=== PATIENT | female | born 1980 | race American Indian/Alaskan Native ===

== ENCOUNTER 2016-05-09 02:25 | Emergency (ER) | payer MEDICAID ==
[2016-05-09 02:51] VITALS: BP 111/76
[2016-05-09 03:33] LABS: Basophils % (Auto) 0.3 % (0.0-1.8); Eosinophils % (Auto) 2.7 % (0.0-4.3); Hematocrit 39.8 % (30.3-42.9); Hemoglobin 13.1 gm/dl (10.1-14.3); Mean Corpuscular HGB Conc 33 % (30-34); Mean Corpuscular Hemoglobin 29 pg (28-32); Mean Corpuscular Volume 89 fl (79-97); Platelet Count 278 K/mm3 (140-440); Red Blood Count 4.49 M/mm3 (3.65-5.03); Red Cell Distribution Width 14.2 % (13.2-15.2); White Blood Count 10.7 K/mm3 (4.5-11.0)
[2016-05-09 04:28] LABS: Sodium 134 mmol/L (137-145)
[2016-05-09 04:29] LABS: Anion Gap 15 mmol/L; Blood Urea Nitrogen 9 mg/dL (7-17); Calcium 8.5 mg/dL (8.4-10.2); Carbon Dioxide 24 mmol/L (22-30); Glucose 97 mg/dL (65-100); Potassium 4.1 mmol/L (3.6-5.0)
--- NOTE | 2016-05-09 20:55 | ED Elopement Review ---
ED Pt Elopement review - Results review Lab results: Laboratory Tests 05/09/16 05/09/16 05/09/16 03:12 03:12 03:12 WBC 10.7 RBC 4.49 Hgb 13.1 Hct 39.8 MCV 89 MCH 29 MCHC 33 RDW 14.2 Plt Count 278 Lymph % (Auto) 22.7 Churchill % (Auto) 6.6 Eos % (Auto) 2.7 Baso % (Auto) 0.3 Lymph # 2.4 Churchill # 0.7 Eos # 0.3 Baso # 0.0 Seg Neutrophils % 67.7 Seg Neutrophils # 7.2 Sodium 134 L Potassium 4.1 Chloride 99.0 Carbon Dioxide 24 Anion Gap 15 BUN 9 Creatinine 0.6 L Estimated GFR > 60 BUN/Creatinine Ratio 15.00 Glucose 97 Calcium 8.5 Troponin T < 0.010 HCG, Qual Negative - Call Back decision Pt Call Back Decision: No action required
== END 2016-05-09 03:15 | disposition left against medical advice (07) ==
LOC: ED 02:25
DX: R10.9 Unspecified abdominal pain (principal); Z53.21 Procedure and treatment not carried out due to patient leaving prior to being seen by health care provider
CPT/HCPCS: 36415; 80048; 84484; 84703; 85025; 93005; 93010

== ENCOUNTER 2016-10-31 20:56 | Emergency (ER) | payer SELFPAY | END 2016-10-31 21:57 | disposition left against medical advice (07) | LOC: ED 20:56 | DX: Z53.21 Procedure and treatment not carried out due to patient leaving prior to being seen by health care provider (principal) ==

== ENCOUNTER 2018-05-22 11:28 | Emergency (ER) | payer MEDICAID ==
[2018-05-22] MEDS ORDERED: SOLU-Medrol IV ONE (11:31)
[2018-05-22] MEDS ORDERED: PROVENTIL IH ONE ×2 (11:31→13:59)
[2018-05-22] MEDS ORDERED: ATROVENT IH ONE ×2 (11:31→13:59)
[2018-05-22] MEDS ORDERED: ADRENALINE P/F SUB-Q ONE ×3 (11:32→13:59)
[2018-05-22] MEDS ORDERED: NACL 0.9% 500 ML 500 ML IV ONE (11:33)
--- NOTE | 2018-05-22 11:33 | Emergency Department Report ---
ED Asthma HPI - General Chief Complaint: Adult Asthma Stated Complaint: ERUM Time Seen by Provider: 05/22/18 11:30 Source: patient, family, EMS (ems notes not available at time of chart dictation), RN notes reviewed, old records reviewed Mode of arrival: Stretcher Limitations: Physical Limitation - History of Present Illness Initial Comments: This is a 38-year-old female. The patient is not known to this provider previously. She reports that she is not . Denies DVT, pulmonary embolus risk factors. Reports a past history of asthma. Diagnosis a child. At least one lead time hospitalization/intubation. Presents to the ER today with a complaint of asthma exacerbation, wheezing and cough. Reports typical triggers include cold weather, change of seasons. Was given albuterol by EMS. Upon initial arrival to the emergency room, patient is wheezing, tachypnea, and in respiratory distress. She is given multiple rounds of epinephrine subcutaneously, fluids, albuterol, Atrovent, steroids and magnesium. These dramatically improved her symptoms. She reports chest wall pain which started with her asthma attack, which does not radiate to the back, arms or neck, and is not associated with vomiting or diaphoresis. She reports she typically gets chest wall pain with her asthma attacks. MD Complaint: "asthma attack", shortness of breath, wheezing -: Gradual Asthma History: childhood onset Severity: severe Context: other Associated Symptoms: dry cough Treatments Prior to Arrival: inhaled bronchodilator (as per verbal report from nursing staff, EMS gave 5 mg of albuterol) - Related Data Home Medications Medication Instructions Recorded Confirmed Last Taken Budesonide [Pulmicort Respules] 1 neb INHALATION BID 01/15/13 10/01/15 06/06/13 02:00 Prednisone [predniSONE 10 mg 10 mg PO QDAY 01/15/13 10/01/15 06/06/13 02:00 (6-Day Pack, 21 Tabs)] Previous Rx's Medication Instructions Recorded Last Taken Type ALBUTEROL Inhaler (OR & NICU) 1 puff IH Q4-6H #1 inha 04/27/13 06/06/13 02:00 Rx [ProAir HFA Inhaler] ALBUTEROL NEB's [Proventil 0.083% 1 inh INHALATION Q4H PRN #60 ml 04/27/13 06/06/13 02:00 Rx NEBS] oxyCODONE /ACETAMINOPHEN [Percocet 1 tab PO Q6HR PRN #20 tablet 06/07/13 Unknown Rx 5/325 mg] Albuterol Sulfate [Proair 90 mcg IH Q4HR PRN #2 aer.pow.ba 05/22/18 Unknown Rx Respiclick] Budesonide [Pulmicort Flexhaler] 2 puff IH BID #1 aer.pow.ba 05/22/18 Unknown Rx EPINEPHrine [Epipen 2-Milad] 0.3 mg IM DAILY PRN #2 ml 05/22/18 Unknown Rx Ipratropium [Atrovent NEB] 0.5 mg IH Q4HR #2 ml 05/22/18 Unknown Rx predniSONE [Deltasone] 40 mg PO QDAY #8 tab 05/22/18 Unknown Rx Allergies Allergy/AdvReac Type Severity Reaction Status Date / Time iodine Allergy Swelling Verified 01/15/13 10:05 naproxen Allergy Swelling Verified 01/15/13 10:05 seafood Allergy Shortness Uncoded 06/06/13 23:14 of Breath ED Review of Systems ROS: Stated complaint: ERUM Other details as noted in HPI Constitutional: malaise. denies: fever Eyes: denies: eye discharge ENT: congestion Respiratory: wheezing Cardiovascular: dyspnea on exertion Gastrointestinal: denies: vomiting Genitourinary: denies: dysuria Musculoskeletal: arthralgia Skin: denies: lesions Neurological: weakness Psychiatric: anxiety ED Past Medical Hx - Past Medical History Hx Hypertension: No Hx Congestive Heart Failure: No Hx Diabetes: No Hx Deep Vein Thrombosis: No Hx Renal Disease: No Hx Sickle Cell Disease: No Hx Seizures: No Hx Asthma: Yes (1.7 albuterol PRN) Hx COPD: No Hx HIV: No - Social History Smoking Status: Never Smoker Substance Use Type: None - Medications Home Medications: Home Medications Medication Instructions Recorded Confirmed Last Taken Type Budesonide [Pulmicort Respules] 1 neb INHALATION BID 01/15/13 10/01/15 06/06/13 02:00 History Prednisone [predniSONE 10 mg 10 mg PO QDAY 01/15/13 10/01/15 06/06/13 02:00 History (6-Day Pack, 21 Tabs)] ALBUTEROL Inhaler (OR & NICU) 1 puff IH Q4-6H #1 inha 04/27/13 10/01/15 06/06/13 02:00 Rx [ProAir HFA Inhaler] ALBUTEROL NEB's [Proventil 0.083% 1 inh INHALATION Q4H PRN #60 ml 04/27/13 10/01/15 06/06/13 02:00 Rx NEBS] oxyCODONE /ACETAMINOPHEN [Percocet 1 tab PO Q6HR PRN #20 tablet 06/07/13 10/01/15 Unknown Rx 5/325 mg] Albuterol Sulfate [Proair 90 mcg IH Q4HR PRN #2 aer.pow.ba 05/22/18 Unknown Rx Respiclick] Budesonide [Pulmicort Flexhaler] 2 puff IH BID #1 aer.pow.ba 05/22/18 Unknown Rx EPINEPHrine [Epipen 2-Milad] 0.3 mg IM DAILY PRN #2 ml 05/22/18 Unknown Rx Ipratropium [Atrovent NEB] 0.5 mg IH Q4HR #2 ml 05/22/18 Unknown Rx predniSONE [Deltasone] 40 mg PO QDAY #8 tab 05/22/18 Unknown Rx ED Physical Exam - General General appearance: alert, anxious, in distress, obese - Head Head exam: Present: atraumatic, normocephalic - Eye Eye exam: Present: normal appearance, EOMI. Absent: nystagmus - ENT ENT exam: Present: normal exam, normal orophraynx, mucous membranes moist, normal external ear exam - Neck Neck exam: Present: normal inspection, full ROM. Absent: tenderness, meningismus - Respiratory Respiratory exam: Present: respiratory distress, wheezes, rhonchi, chest wall tenderness - Cardiovascular Cardiovascular Exam: Present: normal rhythm, tachycardia, normal heart sounds. Absent: systolic murmur, diastolic murmur, rubs, gallop - GI/Abdominal GI/Abdominal exam: Present: soft. Absent: distended, tenderness, guarding, rebound, rigid, pulsatile mass - Extremities Exam Extremities exam: Present: normal inspection, full ROM, other (2+ pulses noted in the bilateral upper, lower extremities. Compartments soft. No long bony tenderness. The pelvis is stable.). Absent: pedal edema, joint swelling, calf tenderness - Back Exam Back exam: Present: normal inspection, full ROM. Absent: tenderness, CVA tenderness (R), paraspinal tenderness, vertebral tenderness - Neurological Exam Neurological exam: Present: alert, oriented X3, other (Extraocular movements intact. Tongue midline. No facial droop. Facial sensation intact to light touch in the V1, V2, V3 distribution bilaterally. 5 and 5 strength in 4 extremities.. Sensation is intact to light touch in 4 extremities.). Absent: motor sensory deficit - Psychiatric Psychiatric exam: Present: anxious - Skin Skin exam: Present: warm, dry, intact, normal color. Absent: rash ED Course Vital Signs 05/22/18 05/22/18 05/22/18 11:28 11:29 11:30 Temperature 99.2 F Pulse Rate 112 H 119 H 120 H Pulse Rate [ Anterior Bilateral Throughout] Respiratory 26 H 29 H 35 H Rate Respiratory Rate [Anterior Bilateral Throughout] Blood Pressure 146/101 146/101 146/101 O2 Sat by Pulse 100 99 99 Oximetry 05/22/18 05/22/18 05/22/18 11:35 11:45 12:00 Temperature Pulse Rate 102 H 88 Pulse Rate [ 108 H Anterior Bilateral Throughout] Respiratory 20 17 Rate Respiratory 33 H Rate [Anterior Bilateral Throughout] Blood Pressure 127/76 127/76 O2 Sat by Pulse 100 100 Oximetry 05/22/18 05/22/18 05/22/18 12:10 12:16 12:30 Temperature Pulse Rate 96 H 90 Pulse Rate [ 98 H Anterior Bilateral Throughout] Respiratory 12 20 Rate Respiratory 18 Rate [Anterior Bilateral Throughout] Blood Pressure 117/74 117/74 O2 Sat by Pulse 100 100 Oximetry 05/22/18 05/22/18 05/22/18 12:46 13:00 13:16 Temperature Pulse Rate 96 H 111 H 101 H Pulse Rate [ Anterior Bilateral Throughout] Respiratory 15 20 15 Rate Respiratory Rate [Anterior Bilateral Throughout] Blood Pressure 116/66 116/66 O2 Sat by Pulse 100 100 100 Oximetry 05/22/18 05/22/18 05/22/18 13:30 13:45 14:00 Temperature Pulse Rate 99 H 108 H 98 H Pulse Rate [ Anterior Bilateral Throughout] Respiratory 17 15 15 Rate Respiratory Rate [Anterior Bilateral Throughout] Blood Pressure 99/57 99/57 113/64 O2 Sat by Pulse 100 100 Oximetry 05/22/18 05/22/18 14:10 14:15 Temperature Pulse Rate 104 H Pulse Rate [ 100 H Anterior Bilateral Throughout] Respiratory 19 Rate Respiratory 18 Rate [Anterior Bilateral Throughout] Blood Pressure 113/64 O2 Sat by Pulse Oximetry - Reevaluation(s) Reevaluation #1: 05/22/18 13:24 Differential diagnosis, including but not limited to: Costochondritis, pneumonia, myocarditis, pericarditis, asthma exacerbation Assessment and plan: 38-year-old female with probable asthma exacerbation. Patient reports no pulmonary embolus or DVT risk factors, and appears to be low risk by well's criteria. She is markedly improved compared to her prior clinical presentation. She is still wheezing, and magnesium infusion is pending. We will give the patient a trial of ambulation with pulse oximetry once she has completed her initial therapy. Overall, looks markedly improved compared to initial presentation. Reevaluation #2: 05/22/18 15:19 The patient is reassessed multiple times during her emergency room stay. She is improved on each successive evaluation, and after her initial treatment, patient was able to ambulate without desaturation. She still had some shortness of breath and symptoms, and requested an additional treatment, which was provided. On final reassessment, the patient has no wheezing, she is speaking in full sentences, and is noted to be playing on a cellular phone, looking at Facebook. The patient reports that her primary care doctor has referred her to an asthma, allergy clinic, and she will request a refill on Pulmicort. Reevaluation #3: 05/22/18 15:20 The patient is low risk by MACK score, low risk by heart score. ED Medical Decision Making - Lab Data Result diagrams: 05/22/18 11:58 05/22/18 11:58 Vital Signs 05/22/18 05/22/18 05/22/18 11:28 11:29 11:35 Temperature 99.2 F Pulse Rate 112 H Pulse Rate [ 108 H Anterior Bilateral Throughout] Respiratory 26 H Rate Respiratory 33 H Rate [Anterior Bilateral Throughout] Blood Pressure 146/101 O2 Sat by Pulse 100 100 Oximetry 05/22/18 12:10 Temperature Pulse Rate Pulse Rate [ 98 H Anterior Bilateral Throughout] Respiratory Rate Respiratory 18 Rate [Anterior Bilateral Throughout] Blood Pressure O2 Sat by Pulse Oximetry Lab Results 05/22/18 05/22/18 05/22/18 Range/Units 11:58 11:58 11:58 WBC 12.2 H (4.5-11.0) K/mm3 RBC 4.70 (3.65-5.03) M/mm3 Hgb 14.3 (10.1-14.3) gm/dl Hct 41.9 (30.3-42.9) % MCV 89 (79-97) fl MCH 31 (28-32) pg MCHC 34 (30-34) % RDW 13.8 (13.2-15.2) % Plt Count 248 (140-440) K/mm3 PT 13.1 (12.2-14.9) Sec. INR 0.95 (0.87-1.13) Sodium 139 (137-145) mmol/L Potassium 3.4 L (3.6-5.0) mmol/L Chloride 103.0 (98-107) mmol/L Carbon Dioxide 21 L (22-30) mmol/L Anion Gap 18 mmol/L BUN 8 (7-17) mg/dL Creatinine 0.9 (0.7-1.2) mg/dL Estimated GFR > 60 ml/min BUN/Creatinine Ratio 9 % Glucose 86 (65-100) mg/dL Calcium 8.2 L (8.4-10.2) mg/dL Total Creatine Kinase (30-135) units/L Troponin T (0.00-0.029) ng/mL HCG, Quant (0-4) mIU/mL 05/22/18 05/22/18 Range/Units 11:58 Unknown WBC (4.5-11.0) K/mm3 RBC (3.65-5.03) M/mm3 Hgb (10.1-14.3) gm/dl Hct (30.3-42.9) % MCV (79-97) fl MCH (28-32) pg MCHC (30-34) % RDW (13.2-15.2) % Plt Count (140-440) K/mm3 PT (12.2-14.9) Sec. INR (0.87-1.13) Sodium (137-145) mmol/L Potassium (3.6-5.0) mmol/L Chloride (98-107) mmol/L Carbon Dioxide (22-30) mmol/L Anion Gap mmol/L BUN (7-17) mg/dL Creatinine (0.7-1.2) mg/dL Estimated GFR ml/min BUN/Creatinine Ratio % Glucose (65-100) mg/dL Calcium (8.4-10.2) mg/dL Total Creatine Kinase 63 (30-135) units/L Troponin T < 0.010 (0.00-0.029) ng/mL HCG, Quant < 2 (0-4) mIU/mL - EKG Data -: EKG Interpreted by Me EKG shows normal: sinus rhythm Rate: normal - EKG Data When compared to previous EKG there are: previous EKG unavailable 05/22/18 13:23 Sinus, 91 beats minute, normal axis, QTC prolonged, borderline atrial enlargement, abnormal EKG, not consistent with ST elevation myocardial infarction. - Radiology Data Radiology results: image reviewed interpreted by me: X-ray the chest is negative for acute disease. Critical care attestation.: If time is entered above; I have spent that time in minutes in the direct care of this critically ill patient, excluding procedure time. ED Disposition Clinical Impression: Asthma exacerbation Qualifiers: Asthma severity: unspecified severity Asthma persistence: intermittent Qualified Code(s): J45.21 - Mild intermittent asthma with (acute) exacerbation Disposition: - TO HOME OR SELFCARE Is pt being admited?: No Does the pt Need Aspirin: No Condition: Stable Additional Instructions: Use the albuterol, Atrovent, prednisone daily for the next 5 days as directed. Initiate Pulmicort therapy as directed. Use epinephrine pen only if patient develops inability to speak or inability to breathe. If any of these happen, used epinephrine pen as directed, and contact 911 right away. Follow-up with the previously scheduled outpatient pulmonology visits, or follow-up with either of the listed pulmonology specialist within the next 2 weeks. Return to the ER right away with new pain, worsened pain, migration of pain, projectile vomiting, change in mental status, confusion, inability to speak, inability to breathe, new, worsening or different symptoms. Referrals: AMOS AMES MD [Primary Care Provider] - 3-5 Days REDD MCKNIGHT MD [Staff Physician] - 7-10 days ROSA MARIA OLIVERA MD [Staff Physician] - 7-10 days
[2018-05-22] MEDS ORDERED: SOLU-Medrol ONE (11:35)
[2018-05-22 12:21] LABS: Hematocrit 41.9 % (30.3-42.9); Hemoglobin 14.3 gm/dl (10.1-14.3); Mean Corpuscular HGB Conc 34 % (30-34); Mean Corpuscular Volume 89 fl (79-97); Platelet Count 248 K/mm3 (140-440); Red Cell Distribution Width 13.8 % (13.2-15.2)
[2018-05-22] MEDS ORDERED: MAGNESIUM SULFATE 2GM/50ML 2 GM/50 ML BAG IV ONE (12:32)
[2018-05-22 12:36] LABS: INR 0.95 (0.87-1.13)
[2018-05-22 12:38] LABS: BUN/Creatinine Ratio 9; Blood Urea Nitrogen 8 mg/dL (7-17); Calcium 8.2 mg/dL (8.4-10.2); Hemolysis Index 21
[2018-05-22] MEDS ORDERED: K-DUR PO ONE (13:01)
--- NOTE | 2018-05-22 13:21 | XRay Report ---
AP CHEST: HISTORY: Asthma exacerbation AP view of the chest demonstrates a normal mediastinal and cardiac contour with clear lungs and normal bony and soft tissue structures. IMPRESSION: Unremarkable AP chest.
[2018-05-22 17:11] VITALS: BP 118/76
== END 2018-05-22 17:10 | disposition home or self-care (01) ==
LOC: ED 11:28
DX: J45.21 Mild intermittent asthma with (acute) exacerbation (principal)
CPT/HCPCS: 36415; 71045; 80048; 82550; 84484; 84702; 85027; 85610; 93005; 93010; 94640; 94644; 96365; 96372; 96375; 99285; J0171; J2930; J3475

== ENCOUNTER 2018-10-30 11:03 | Emergency (ER) | payer MEDICAID ==
[2018-10-30] MEDS ORDERED: MORPHINE IV ONE (11:51)
[2018-10-30] MEDS ORDERED: NACL 0.9% 500 ML 500 ML IV ONE (11:51)
[2018-10-30 12:39] LABS: Bacteria,Urine 1+ /HPF (Negative); Bilirubin,Urine NEG (Negative); Blood,Urine NEG (Negative); Color,Urine Amber (Yellow); Mucus,Urine 3+ /HPF
--- NOTE | 2018-10-30 12:51 | XRay Report ---
CHEST 1 VIEW 10/30/2018 12:16 PM INDICATION / CLINICAL INFORMATION: Trauma. COMPARISON: None available. FINDINGS: SUPPORT DEVICES: None. HEART / MEDIASTINUM: No significant abnormality. LUNGS / PLEURA: No significant pulmonary or pleural abnormality. No pneumothorax. ADDITIONAL FINDINGS: No significant additional findings. No appreciable rib fractures. IMPRESSION: 1. No acute findings. Signer Name: Mitch Ojeda MD Signed: 10/30/2018 12:47 PM Workstation Name: [id number]
--- NOTE | 2018-10-30 12:52 | XRay Report ---
AP and lateral views right forearm INDICATION / CLINICAL INFORMATION: Trauma. COMPARISON: None available. FINDINGS: BONES/JOINT(S): No acute fracture or subluxation. No significant arthritis. SOFT TISSUES: No significant abnormality. ADDITIONAL FINDINGS: None. Signer Name: Mitch Ojeda MD Signed: 10/30/2018 12:48 PM Workstation Name: [id number]
--- NOTE | 2018-10-30 12:52 | XRay Report ---
3 views of the right shoulder INDICATION / CLINICAL INFORMATION: Trauma. COMPARISON: None available. FINDINGS: BONES/JOINT(S): No acute fracture or subluxation. No significant arthritis. SOFT TISSUES: No significant abnormality. ADDITIONAL FINDINGS: None. Signer Name: Mitch Ojeda MD Signed: 10/30/2018 12:48 PM Workstation Name: [id number]
--- NOTE | 2018-10-30 12:53 | XRay Report ---
AP and lateral views of the right elbow INDICATION / CLINICAL INFORMATION: Trauma. COMPARISON: None available. FINDINGS: BONES/JOINT(S): No acute fracture or subluxation. No significant arthritis. SOFT TISSUES: No significant abnormality. ADDITIONAL FINDINGS: None. Signer Name: Mitch Ojeda MD Signed: 10/30/2018 12:49 PM Workstation Name: [id number]
--- NOTE | 2018-10-30 12:53 | XRay Report ---
Right humerus 2 views INDICATION / CLINICAL INFORMATION: Trauma. COMPARISON: None available. FINDINGS: BONES/JOINT(S): No acute fracture or subluxation. No significant arthritis. SOFT TISSUES: No significant abnormality. ADDITIONAL FINDINGS: None. Signer Name: Mitch Ojeda MD Signed: 10/30/2018 12:49 PM Workstation Name: [id number]
--- NOTE | 2018-10-30 13:13 | Emergency Department Report ---
ED General Adult HPI - General Chief complaint: Extremity Injury, Upper Stated complaint: FALL/R SHOULDER PAIN Time Seen by Provider: 10/30/18 11:40 Source: patient, EMS (ems notes not available at time of chart dictation), RN notes reviewed Mode of arrival: Stretcher Limitations: Physical Limitation - History of Present Illness Initial comments: This is a 38-year-old female. I have evaluated this patient in the past. She states she is not . Her past medical history includes asthma. Patient presents to the emergency room after mechanical slip and fall down some stairs. Patient indicates she was in her usual state of health walking downstairs, when her slippers gave out, and she tumbled down headfirst. She did not lose consciousness. She hit her head. She hit the right side of her abdomen. She hit her right upper extremity. She denies midline neck pain. She does not endorse any weakness or numbness. She does not endorse loss of vision, and complains of throbbing aching right upper extremity pain, and right-sided flank abdominal pain. She reports a history of anaphylaxis to iodine, but is not sure if she can have a CT scan with IV contrast. -: Sudden Location: head, right, upper extremity Radiation: non-radiation Severity scale (0 -10): 10 Quality: aching Consistency: constant Improves with: rest Worsens with: movement - Related Data Home Medications Medication Instructions Recorded Confirmed Last Taken Budesonide [Pulmicort Respules] 1 neb INHALATION BID 01/15/13 10/01/15 06/06/13 02:00 Prednisone [predniSONE 10 mg 10 mg PO QDAY 01/15/13 10/01/15 06/06/13 02:00 (6-Day Pack, 21 Tabs)] Previous Rx's Medication Instructions Recorded Last Taken Type ALBUTEROL Inhaler (OR & NICU) 1 puff IH Q4-6H #1 inha 04/27/13 06/06/13 02:00 Rx [ProAir HFA Inhaler] ALBUTEROL NEB's [Proventil 0.083% 1 inh INHALATION Q4H PRN #60 ml 04/27/13 06/06/13 02:00 Rx NEBS] oxyCODONE /ACETAMINOPHEN [Percocet 1 tab PO Q6HR PRN #20 tablet 06/07/13 Unknown Rx 5/325 mg] Albuterol Sulfate [Proair 90 mcg IH Q4HR PRN #2 aer.pow.ba 05/22/18 Unknown Rx Respiclick] Budesonide [Pulmicort Flexhaler] 2 puff IH BID #1 aer.pow.ba 05/22/18 Unknown Rx EPINEPHrine [Epipen 2-Milad] 0.3 mg IM DAILY PRN #2 ml 05/22/18 Unknown Rx Ipratropium [Atrovent NEB] 0.5 mg IH Q4HR #2 ml 05/22/18 Unknown Rx predniSONE [Deltasone] 40 mg PO QDAY #8 tab 05/22/18 Unknown Rx HYDROcodone/APAP 5-325 [[place] 1 each PO Q6HR PRN #10 tablet 10/30/18 Unknown Rx 5/325] Nitrofurantoin [place]/M-Cryst 100 mg PO Q12HR #14 capsule 10/30/18 Unknown Rx [Macrobid CAP] Allergies Allergy/AdvReac Type Severity Reaction Status Date / Time iodine Allergy Swelling Verified 01/15/13 10:05 naproxen Allergy Swelling Verified 01/15/13 10:05 seafood Allergy Shortness Uncoded 06/06/13 23:14 of Breath ED Review of Systems ROS: Stated complaint: FALL/R SHOULDER PAIN Other details as noted in HPI Constitutional: denies: fever, malaise Eyes: denies: eye discharge, vision change ENT: denies: epistaxis Respiratory: denies: cough Cardiovascular: denies: chest pain Gastrointestinal: abdominal pain. denies: nausea, vomiting Genitourinary: denies: frequency Musculoskeletal: back pain (paraspinal back pain), arthralgia, myalgia Skin: denies: lesions Neurological: headache. denies: weakness, numbness, paresthesias, confusion Psychiatric: anxiety ED Past Medical Hx - Past Medical History Previous Medical History?: Yes Hx Hypertension: No Hx Congestive Heart Failure: No Hx Diabetes: No Hx Deep Vein Thrombosis: No Hx Renal Disease: No Hx Sickle Cell Disease: No Hx Seizures: No Hx Asthma: Yes (1.7 albuterol PRN) Hx COPD: No Hx HIV: No Additional medical history: hypotension, hyperlipidemia - Social History Smoking Status: Never Smoker Substance Use Type: Alcohol - Medications Home Medications: Home Medications Medication Instructions Recorded Confirmed Last Taken Type Budesonide [Pulmicort Respules] 1 neb INHALATION BID 01/15/13 10/01/15 06/06/13 02:00 History Prednisone [predniSONE 10 mg 10 mg PO QDAY 01/15/13 10/01/15 06/06/13 02:00 History (6-Day Pack, 21 Tabs)] ALBUTEROL Inhaler (OR & NICU) 1 puff IH Q4-6H #1 inha 04/27/13 10/01/15 06/06/13 02:00 Rx [ProAir HFA Inhaler] ALBUTEROL NEB's [Proventil 0.083% 1 inh INHALATION Q4H PRN #60 ml 04/27/13 10/01/15 06/06/13 02:00 Rx NEBS] oxyCODONE /ACETAMINOPHEN [Percocet 1 tab PO Q6HR PRN #20 tablet 06/07/13 10/01/15 Unknown Rx 5/325 mg] Albuterol Sulfate [Proair 90 mcg IH Q4HR PRN #2 aer.pow.ba 05/22/18 Unknown Rx Respiclick] Budesonide [Pulmicort Flexhaler] 2 puff IH BID #1 aer.pow.ba 05/22/18 Unknown Rx EPINEPHrine [Epipen 2-Milad] 0.3 mg IM DAILY PRN #2 ml 05/22/18 Unknown Rx Ipratropium [Atrovent NEB] 0.5 mg IH Q4HR #2 ml 05/22/18 Unknown Rx predniSONE [Deltasone] 40 mg PO QDAY #8 tab 05/22/18 Unknown Rx HYDROcodone/APAP 5-325 [[place] 1 each PO Q6HR PRN #10 tablet 10/30/18 Unknown Rx 5/325] Nitrofurantoin [place]/M-Cryst 100 mg PO Q12HR #14 capsule 10/30/18 Unknown Rx [Macrobid CAP] ED Physical Exam - General Limitations: Other (right upper extremity in a sling) General appearance: alert, anxious, obese - Head Head exam: Present: atraumatic, normocephalic - Eye Eye exam: Present: normal appearance, PERRL, EOMI - ENT ENT exam: Present: normal exam, normal orophraynx, mucous membranes moist, normal external ear exam, other (there is no nasal septal hematoma. There is no hemotympanum) - Neck Neck exam: Present: normal inspection. Absent: tenderness, meningismus - Respiratory Respiratory exam: Present: normal lung sounds bilaterally. Absent: respiratory distress, wheezes, rales, rhonchi, stridor, chest wall tenderness, accessory muscle use, decreased breath sounds, prolonged expiratory - Cardiovascular Cardiovascular Exam: Present: regular rate, normal rhythm, normal heart sounds. Absent: bradycardia, tachycardia, irregular rhythm, systolic murmur, diastolic murmur, rubs, gallop - GI/Abdominal GI/Abdominal exam: Present: soft, tenderness (there is right flank tenderness, there is no rebound, guarding or peritoneal signs.). Absent: distended, guarding, rebound, rigid, pulsatile mass - Extremities Exam Extremities exam: Present: normal inspection, tenderness, other (2+ pulses noted in the bilateral upper, lower extremities. Full range of motion in the bilateral lower extremities and left upper extremity. Right upper extremity in a sling. Full range of motion in the right wrist. There is mild diffuse soft tissue tenderness in the right forearm and right bicep. The compartments are soft.). Absent: pedal edema - Back Exam Back exam: Present: normal inspection, paraspinal tenderness. Absent: CVA tenderness (R), CVA tenderness (L), vertebral tenderness - Neurological Exam Neurological exam: Present: alert, oriented X3, other (Extraocular movements intact. Tongue midline. No facial droop. Facial sensation intact to light touch in the V1, V2, V3 distribution bilaterally. 5 and 5 strength in 4 extremities.. Sensation is intact to light touch in 4 extremities.). Absent: motor sensory deficit - Psychiatric Psychiatric exam: Present: anxious - Skin Skin exam: Present: warm, dry, intact, normal color. Absent: rash ED Course Vital Signs 10/30/18 10/30/18 10/30/18 11:16 11:25 11:30 Temperature 98.1 F Pulse Rate 88 88 86 Respiratory 17 22 16 Rate Blood Pressure 118/66 112/65 O2 Sat by Pulse 98 100 97 Oximetry 10/30/18 10/30/18 10/30/18 12:31 13:00 13:30 Temperature Pulse Rate 83 77 66 Respiratory 15 17 12 Rate Blood Pressure 112/65 117/76 103/72 O2 Sat by Pulse 98 94 97 Oximetry 10/30/18 10/30/18 10/30/18 14:00 14:41 15:00 Temperature Pulse Rate 59 L 72 Respiratory 17 9 L Rate Blood Pressure 97/63 97/63 113/75 O2 Sat by Pulse 96 100 100 Oximetry - Reevaluation(s) Reevaluation #1: 10/30/18 13:13 Differential diagnosis, including not limited to: Intracranial injury, intra- abdominal injury, soft tissue injury, fracture, dislocation Assessment and plan: 38-year-old female status post mechanical fall. Clinically sober on examination.Patient is clinically sober at this time. The cervical spine is cleared through nexus and tuvaluan c spine rule primary and secondary survey essentially unremarkable, except as documented. Plain films unremarkable so far. CT scan of the abdomen and pelvis is pending. Patient is improved after pain medication. Reevaluation #2: 10/30/18 15:03 Patient reassessed. Blood pressure currently 113/75. Range of motion improved in the right elbow and arm. Patient feeding herself chicken soup. Abdomen soft on repeat exam, without rebound, guarding or peritoneal signs. No endorsing intermittent dysuria 2 days. Otherwise, states she feels improved. She is counseled to expect to be sore over the next few days. She states she is reliable to follow-up. Naprosyn allergy is reviewed and appreciated. ED Medical Decision Making - Lab Data Result diagrams: 10/30/18 13:06 10/30/18 13:06 Vital Signs 10/30/18 10/30/18 10/30/18 11:16 11:25 11:30 Temperature 98.1 F Pulse Rate 88 88 86 Respiratory 17 22 16 Rate Blood Pressure 118/66 112/65 O2 Sat by Pulse 98 100 97 Oximetry 10/30/18 10/30/18 12:31 13:00 Temperature Pulse Rate 83 77 Respiratory 15 17 Rate Blood Pressure 112/65 117/76 O2 Sat by Pulse 98 94 Oximetry Lab Results 10/30/18 Range/Units 12:13 Urine Color [place] (Yellow) Urine Turbidity Cloudy (Clear) Urine pH 5.0 (5.0-7.0) Ur Specific [place] 1.035 H (1.003-1.030) Urine Protein 30 mg/dl (Negative) mg/dL Urine Glucose (UA) Neg (Negative) mg/dL Urine Ketones Neg (Negative) mg/dL Urine Blood Neg (Negative) Urine Nitrite Neg (Negative) Urine Bilirubin Neg (Negative) Urine Urobilinogen 2.0 (<2.0) mg/dL Ur Leukocyte Esterase Tr (Negative) Urine WBC (Auto) 11.0 H (0.0-6.0) /HPF Urine RBC (Auto) 10.0 (0.0-6.0) /HPF U Epithel Cells (Auto) 1.0 (0-13.0) /HPF Urine Bacteria (Auto) 1+ (Negative) /HPF Urine Mucus 3+ /HPF - Radiology Data Radiology results: pending, report reviewed, image reviewed X-ray of the chest, pelvis, right shoulder, right humerus, right elbow, right forearm, negative for acute disease. CT scan of the abdomen and pelvis is negative for acute disease. CT scan of the pelvis is negative for acute disease. Critical care attestation.: If time is entered above; I have spent that time in minutes in the direct care of this critically ill patient, excluding procedure time. ED Disposition Clinical Impression: Right arm pain, Right sided abdominal pain, History of fall, Dysuria Disposition: TO HOME OR SELFCARE Is pt being admited?: No Does the pt Need Aspirin: No Condition: Stable Additional Instructions: Pain typically gets worse before gets better after mechanical fall and trauma. Rest, avoid heavy lifting, and avoid strenuous physical activities. Advance diet as tolerated. Take the pain medication as needed/directed, alternating with [id number] Tylenol, every 4-6 hours. Maximum daily dose of Tylenol should not exceed 2000 mg. If taking [place] for pain, do not drive, consume alcohol, or make important decisions. Follow-up for a repeat evaluation within 5-7 days. Patient may follow up with the primary care doctor, urgent care center, will return to the emergency room for repeat evaluation. Please return to the ER right away with new, worsening or different symptoms, or symptoms not present on the initial emergency room evaluation. Prescriptions: Nitrofurantoin [place]field/M-Cryst [Macrobid CAP] 100 mg PO Q12HR #14 capsule HYDROcodone/APAP 5-325 [Har[place] 5/325] 1 each PO Q6HR PRN #10 tablet PRN Reason: Pain Referrals: [facility] [Provider Group] - 3-5 Days
--- NOTE | 2018-10-30 13:36 | XRay Report ---
AP view of the pelvis INDICATION / CLINICAL INFORMATION: Trauma. COMPARISON: None available. FINDINGS: BONES/JOINT(S): No acute fracture or subluxation. No significant arthritis. SOFT TISSUES: No significant abnormality. ADDITIONAL FINDINGS: None. Signer Name: Mitch Ojeda MD Signed: 10/30/2018 1:32 PM Workstation Name: [id number]
[2018-10-30 13:44] LABS: Basophils # (Auto) 0.1 K/mm3 (0.0-0.1); Basophils % (Auto) 0.7 % (0.0-1.8); Eosinophils # (Auto) 0.2 K/mm3 (0.0-0.4); Eosinophils % (Auto) 2.7 % (0.0-4.3); Hematocrit 39.8 % (30.3-42.9); Hemoglobin 13.7 gm/dl (10.1-14.3); Lymphocytes # (Auto) 1.9 K/mm3 (1.2-5.4); Lymphocytes % (Auto) 22.1 % (13.4-35.0); Mean Corpuscular HGB Conc 34 % (30-34); Mean Corpuscular Volume 87 fl (79-97); Monocytes # (Auto) 0.7 K/mm3 (0.0-0.8); Monocytes % (Auto) 8.5 % (0.0-7.3); Platelet Count 309 K/mm3 (140-440); Red Blood Count 4.57 M/mm3 (3.65-5.03); Red Cell Distribution Width 13.9 % (13.2-15.2)
[2018-10-30 14:06] LABS: Alanine Aminotransferase 9 units/L (7-56); Albumin 3.9 g/dL (3.9-5)
[2018-10-30 14:16] LABS: Bilirubin,Direct < 0.2 mg/dL (0-0.2)
[2018-10-30 14:21] LABS: BUN/Creatinine Ratio 12; Blood Urea Nitrogen 7 mg/dL (7-17); Calcium 8.9 mg/dL (8.4-10.2); Hemolysis Index 86
--- NOTE | 2018-10-30 14:43 | Cat Scan Report ---
Head CT without contrast INDICATION: Trauma. TECHNIQUE: Routine CT head without contrast. All CT scans at this location are performed using CT dose reduction for ALARA by means of automated exposure control. COMPARISON: None. FINDINGS: BRAIN / INTRACRANIAL CONTENTS: No acute hemorrhage, brain edema, mass effect, or hydrocephalus. Vero l keys-white differentiation. No chronic infarct or focal atrophy. Normal brain volume and ventricula r/sulcal size for age. CALVARIUM/SKULL BASE/CRANIOCERVICAL JUNCTION: No evidence of fracture. ORBITS: No significant abnormality of visualized orbits. SINUSES / MASTOIDS: No significant abnormality of visualized sinuses and mastoid air cells. ADDITIONAL FINDINGS: None. IMPRESSION: 1. No acute post-traumatic intracranial abnormality. Signer Name: Mitch Ojeda MD Signed: 10/30/2018 2:39 PM Workstation Name: [id number]
--- NOTE | 2018-10-30 14:57 | Cat Scan Report ---
CT ABDOMEN AND PELVIS WITHOUT CONTRAST HISTORY: right sided abd pain flank pain s/p fall. COMPARISON: None. TECHNIQUE: CT images of the abdomen and pelvis were obtained without administration of intravenous co ntrast. All CT scans at this location are performed using CT dose reduction for ALARA by means of au tomated exposure control. FINDINGS: Lungs/bones: The lung bases are well-aerated. Normal heart size. The bony structures are intact. No fracture or significant degenerative changes Abdomen/pelvis: The liver, biliary system, pancreas, spleen, adrenal glands, bowel loops and appendi x are unremarkable. The aorta has normal caliber. There appear to be a few tiny, punctate renal calyceal stones in both kidneys. No ureteral stones or hydronephrosis. The bladder is unremarkable. The uterus and left adnexa are within normal limits. There is suggestion of a 1.[address] No evidence for ascites, acute inflammation or free air. A small umbilical hernia containing fat is i dentified. IMPRESSION: 1. No acute inflammatory process. 2. Punctate bilateral renal calyceal stones. No hydronephrosis. 3. 1.5 cm right ovarian cyst. Signer Name: Herson Portillo Jr, MD Signed: 10/30/2018 2:53 PM Workstation Name: [id number]
[2018-10-30 15:08] VITALS: BP 113/75
== END 2018-10-30 14:30 | disposition home or self-care (01) ==
LOC: ED 11:03
DX: M25.511 Pain in right shoulder (principal); M79.601 Pain in right arm; R10.9 Unspecified abdominal pain; R30.0 Dysuria; J45.909 Unspecified asthma, uncomplicated; E78.5 Hyperlipidemia, unspecified; I95.9 Hypotension, unspecified; Z79.899 Other long term (current) drug therapy; Z91.041 Radiographic dye allergy status; Z91.013 Allergy to seafood; W10.8XXA Fall (on) (from) other stairs and steps, initial encounter; Y93.01 Activity, walking, marching and hiking; Y92.89 Other specified places as the place of occurrence of the external cause; Y99.8 Other external cause status
CPT/HCPCS: 36415; 70450; 71045; 72170; 73030; 73060; 73070; 73090; 74176; 80048; 80076; 81001; 82550; 83690; 83735; 85025; 87086; 96374; 99285; J2270; J7040

== ENCOUNTER 2019-08-25 17:19 | Observation (INO) | payer MEDICAID ==
[2019-08-25] MEDS ORDERED: MAGNESIUM SULFATE 2 GM/50 ML BAG IV ONE (18:40)
[2019-08-25] MEDS ORDERED: METOCLOPRAMIDE 10 MG/2 ML INJ IV ONE (18:40)
[2019-08-25] MEDS ORDERED: LIDOCAINE (4%) 40 MG/ML TOPICAL SOLN 50 ML BOTTLE TP ONE (18:40)
[2019-08-25] MEDS ORDERED: diphenhydrAMINE 50 MG/ML VIAL IV ONE (18:40)
[2019-08-25] MEDS ORDERED: BUPIVACAINE-EPINEPHRINE/PF 0.25%-1:200,000 (10 ML) VIAL INFILTRATI ONE (18:41)
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
[2019-08-25 19:11] LABS: Hematocrit 40.4 % (30.3-42.9); Hemoglobin 13.7 gm/dl (10.1-14.3); Mean Corpuscular HGB Conc 34 % (30-34); Mean Corpuscular Volume 88 fl (79-97); Platelet Count 306 K/mm3 (140-440); Red Blood Count 4.58 M/mm3 (3.65-5.03); Red Cell Distribution Width 13.2 % (13.2-15.2)
[2019-08-25 19:19] LABS: Alanine Aminotransferase 31 units/L (7-56); BUN/Creatinine Ratio 10; Blood Urea Nitrogen 8 mg/dL (7-17); Calcium 9.1 mg/dL (8.4-10.2); Hemolysis Index 23
[2019-08-25 19:22] LABS: Partial Thromboplastin Time 28.5 Sec. (24.2-36.6); Thrombin Time 15.6 Sec. (15.1-19.6)
[2019-08-25] MEDS ORDERED: LORazepam 2 MG/ML VIAL ONE (19:50)
[2019-08-25] MEDS ORDERED: HALOPERIDOL LACTATE 5 MG/1 ML INJ ONE (19:50)
--- NOTE | 2019-08-25 20:05 | Cat Scan Report ---
CT HEAD WITHOUT CONTRAST INDICATION / CLINICAL INFORMATION: MAIN: Stroke symptoms, pt. c/o migraine x 2 weeks. TECHNIQUE: All CT scans at this location are performed using CT dose reduction for ALARA by means of automated e xposure control. COMPARISON: Head CT 10/30/2018 FINDINGS: HEMORRHAGE: None. EXTRA-AXIAL SPACES: Normal in size and morphology for the patient's age. VENTRICULAR SYSTEM: Normal in size and morphology for the patient's age. CEREBRAL PARENCHYMA: No significant abnormality. No acute territorial infarct. MIDLINE SHIFT OR HERNIATION: None. CEREBELLUM / BRAINSTEM: No significant abnormality. ORBITS: Normal as visualized. SOFT TISSUES of HEAD: No significant abnormality. CALVARIUM: No significant abnormality. PARANASAL SINUSES / MASTOID AIR CELLS: Normal as visualized. ADDITIONAL FINDINGS: None. IMPRESSION: 1. No acute intracranial abnormality. Signer Name: Clive Herrera MD Signed: 08/25/2019 8:01 PM Workstation Name: [id number]
[2019-08-25] MEDS ORDERED: CLOPIDOGREL 75 MG TAB PO ONE (20:25)
[2019-08-25] MEDS ORDERED: METOCLOPRAMIDE 10 MG TAB PO PRN (22:05)
[2019-08-25] MEDS ORDERED: MAGNESIUM HYDROXIDE (MOM) ORAL LIQD UDC PO PRN (22:05)
[2019-08-25] MEDS ORDERED: MORPHINE 2 MG/1 ML INJ IV PRN (22:05)
[2019-08-25] MEDS ORDERED: ACETAMINOPHEN 325 MG TAB PO PRN (22:05)
[2019-08-25] MEDS ORDERED: PROMETHAZINE 25 MG RECT SUPP PR PRN (22:05)
[2019-08-25] MEDS ORDERED: ONDANSETRON 4 MG/2 ML INJ IV PRN (22:05)
--- NOTE | 2019-08-25 22:18 | History and Physical Report ---
History of Present Illness History of present illness: 39-year-old woman with a history of migraine comes emergency room for evaluation. Patient complains of complaints of headache for 3 weeks. Headache is in the right occipital area which he describes a constant, dull pain, intensity 7/10, no radiation, exacerbated by sound and light. Over the last 2 days she developed left side weakness. Review Of Systems: Constitutional: no weight loss, fever, chills Ears, eyes, nose, mouth and throat: no nasal congestion, no nasal discharge, no sinus pressure, blurry vision, diplopia Neck: No neck pain or rigidity. Cardiovascular: No palpitations, chest pain Respiratory: No shortness of breath, cough Gastrointestinal: No hematochezia Genitourinary : no dysuria, frequency Musculoskeletal: no muscle ache , joint pain Integumentary: no rash, no pruritis Neurological: no parathesias, focal weakness Endocrine: no cold or heat intolerance, no polyuria or polydipsia Hematologic/Lymphatic: no easy bruising, no easy bleeding, no gland swelling Allergic/Immunologic: no urticaria, no angioedema. PAST MEDICAL HISTORY: migraine PAST SURGICAL HISTORY: Partial hysterectomy SOCIAL HISTORY: Denies alcohol, tobacco, drugs FAMILY HISTORY: Hypertension Medications and Allergies Allergies Allergy/AdvReac Type Severity Reaction Status Date / Time iodine Allergy Swelling Verified 01/15/13 10:05 naproxen Allergy Swelling Verified 01/15/13 10:05 seafood Allergy Shortness Uncoded 06/06/13 23:14 of Breath Home Medications Medication Instructions Recorded Confirmed Last Taken Type Budesonide [Pulmicort Respules] 1 neb INHALATION BID 01/15/13 10/01/15 06/06/13 02:00 History Prednisone [predniSONE 10 mg 10 mg PO QDAY 01/15/13 10/01/15 06/06/13 02:00 History (6-Day Pack, 21 Tabs)] ALBUTEROL NEB's [Proventil 0.083% 1 inh INHALATION Q4H PRN #60 ml 04/27/13 10/01/15 06/06/13 02:00 Rx NEBS] Albuterol INH(or & Nicu Only) 1 puff IH Q4-6H #1 inha 04/27/13 10/01/15 06/06/13 02:00 Rx [ProAir HFA Inhaler] oxyCODONE /ACETAMINOPHEN [Percocet 1 tab PO Q6HR PRN #20 tablet 06/07/13 10/01/15 Unknown Rx 5/325 mg] Albuterol Sulfate [Proair 90 mcg IH Q4HR PRN #2 aer.pow.ba 05/22/18 Unknown Rx Respiclick] Budesonide [Pulmicort Flexhaler] 2 puff IH BID #1 aer.pow.ba 05/22/18 Unknown Rx EPINEPHrine [Epipen 2-Milad] 0.3 mg IM DAILY PRN #2 ml 05/22/18 Unknown Rx Ipratropium [Atrovent NEB] 0.5 mg IH Q4HR #2 ml 05/22/18 Unknown Rx predniSONE [Deltasone] 40 mg PO QDAY #8 tab 05/22/18 Unknown Rx HYDROcodone/APAP 5-325 [[place] 1 each PO Q6HR PRN #10 tablet 10/30/18 Unknown Rx 5/325] Nitrofurantoin [place]/M-Cryst 100 mg PO Q12HR #14 capsule 10/30/18 Unknown Rx [Macrobid CAP] Active Meds: Active Medications Acetaminophen (Tylenol) 650 mg PO Q4H PRN PRN Reason: Pain, Mild (1-3) Atorvastatin Calcium (Lipitor) 40 mg PO QHS KIERA Bisacodyl (Dulcolax) 10 mg [place] QDAY PRN PRN Reason: Constipation Enoxaparin Sodium (Enoxaparin) 30 mg SUB-Q QDAY KIERA Magnesium Hydroxide (Milk Of Magnesia) 30 ml PO Q4H PRN PRN Reason: Constipation Metoclopramide HCl (Reglan) 10 mg PO Q6H PRN PRN Reason: Nausea And Vomiting Morphine Sulfate (Morphine) 2 mg IV Q4H PRN PRN Reason: Pain, Moderate (4-6) Ondansetron HCl (Zofran) 4 mg IV Q4H PRN PRN Reason: Nausea And Vomiting Promethazine HCl (Phenergan) 25 mg NJ Q6H PRN PRN Reason: Nausea And Vomiting Sodium Chloride (Sodium Chloride Flush Syringe 10 Ml) 10 ml INJ PRN PRN PRN Reason: LINE FLUSH Exam - Physical Exam Narrative exam: Gen. appearance: Patient lying in bed, no apparent distress HEENT: Normocephalic, atraumatic, pupils equally round and reactive to light, extraocular movement intact, and no sclericterus,. No JVD or thyromegaly or nodule,neck supple, no carotid bruit ,mucous membranes moist, no exudate or erythema Heart: S1, S2, regular rate and rhythm Lungs: Clear bilaterally, breathing comfortable Abdomen: Positive bowel sounds, nontender, nondistended, no organomegaly Extremity: no edema, cyanosis, clubbing Skin: No rash, nodules, warm, dry Neuro: Cranial nerves II to XII intact, speech is fluent, motor - 5-/5 on the left, otherwise normal, sensory intact - Constitutional Vitals: Temp Pulse Resp BP Pulse Ox 98.2 F 99 H 19 110/77 98 08/25/19 19:34 08/25/19 19:34 08/25/19 19:34 08/25/19 19:34 08/25/19 19:34 Results - Labs CBC & Chem 7: 08/25/19 18:39 08/25/19 Unknown Labs: Abnormal lab results 08/25/19 08/25/19 Range/Units 18:40 Unknown Total Creatine Kinase 272 H (30-135) units/L Acetaminophen < 5.0 L (10.0-30.0) ug/mL - Imaging and Cardiology CT Scan - head: report reviewed Assessment and Plan Assessment Complex migraine versus CVA Obtain MRI of the head, carotid Doppler, echo Do neuro checks, swallow screen Consult physical, occupational, neurology Start Plavix, statin IV hydralazine for blood pressure control DVT prophylaxis
[2019-08-26 07:02] LABS: Chol/HDL Ratio 4.65 %
--- NOTE | 2019-08-26 08:00 | Progress Note ---
Assessment and Plan Assessment and plan: Patient is a 39 yo woman with a history of a history of asthma and migraines who presented with worsening headaches for 3 weeks with associated left-sided deficits per ED documentation. Patient presents more than 24 hours after symptom onset, therefore, she was not a TPA candidate. Intractable Headache differential include Complex migraine, CVA, other causes: Obtain MRI of the head, carotid Doppler, echo, Do neuro checks, swallow screen, Consult physical, occupational, neurology, Start Plavix, statin Asthma: use Albuterol MDI prn DVT prophylaxis: on Sq lovenox 08/26/19: MRI brain pending, Neurology consult pending History Interval history: Patient was seen and examined. Follow-up on current diagnosis of Headaches. Overnight uneventful as no events directly reported to me. Patient denies any chest pain, shortness breath. Imaging, nursing note, chart, labs and old chart reviewed. Discussed with patient. Hospitalist Physical - Physical exam Narrative exam: Gen: WDWN, NAD, Awake, Alert, Orientated x 3 HEENT: NCAT, EOMI, PERRL, OP Clear Neck: supple, no adenopathy, no thyromegaly, no JVD CVS/Heart: RRR, normal S1S2, pulses present bilaterally Chest/Lungs: CTA B, Symmetrical chest expansion, good air entry bilaterally GI/Abdomen: soft, NTND, good bowel sounds, no guarding or rebound /Bladder: no suprapubic tenderness, no CVA or paraspinal tenderness Extermity/Skin: no c/c/e, no obvious rash MSK: FROM x 4, msk strength 5/5 on the right and 4+/5 on the left Neuro: CN 2-12 grossly intact, no new focal deficits, no drift, Psych: calm - Constitutional Vitals: Temp Pulse Resp BP Pulse Ox 98.3 F 72 18 106/66 96 08/26/19 07:39 08/26/19 07:39 08/26/19 07:39 08/26/19 07:39 08/26/19 07:39 Results - Labs CBC & Chem 7: 08/25/19 18:39 08/25/19 Unknown Labs: Laboratory Last Values WBC 10.1 K/mm3 (4.5-11.0) 08/25/19 18:39 RBC 4.58 M/mm3 (3.65-5.03) 08/25/19 18:39 Hgb 13.7 gm/dl (10.1-14.3) 08/25/19 18:39 Hct 40.4 % (30.3-42.9) 08/25/19 18:39 MCV 88 fl (79-97) 08/25/19 18:39 MCH 30 pg (28-32) 08/25/19 18:39 MCHC 34 % (30-34) 08/25/19 18:39 RDW 13.2 % (13.2-15.2) 08/25/19 18:39 Plt Count 306 K/mm3 (140-440) 08/25/19 18:39 PT 13.3 Sec. (12.2-14.9) 08/25/19 18:40 INR 1.00 (0.87-1.13) 08/25/19 18:40 APTT 28.5 Sec. (24.2-36.6) 08/25/19 18:40 Thrombin Time 15.6 Sec. (15.1-19.6) 08/25/19 18:40 Sodium 137 mmol/L (137-145) 08/25/19 Unknown Potassium 4.1 mmol/L (3.6-5.0) 08/25/19 Unknown Chloride 101.3 mmol/L (98-107) 08/25/19 Unknown Carbon Dioxide 25 mmol/L (22-30) 08/25/19 Unknown Anion Gap 15 mmol/L 08/25/19 Unknown BUN 8 mg/dL (7-17) 08/25/19 Unknown Creatinine 0.8 mg/dL (0.7-1.2) 08/25/19 Unknown Estimated GFR > 60 ml/min 08/25/19 Unknown BUN/Creatinine Ratio 10 % 08/25/19 Unknown Glucose 96 mg/dL (65-100) 08/25/19 Unknown Calcium 9.1 mg/dL (8.4-10.2) 08/25/19 Unknown Magnesium 2.00 mg/dL (1.7-2.3) 08/25/19 Unknown Total Bilirubin 0.20 mg/dL (0.1-1.2) 08/25/19 Unknown AST 29 units/L (5-40) 08/25/19 Unknown ALT 31 units/L (7-56) 08/25/19 Unknown Alkaline Phosphatase 71 units/L (35-129) 08/25/19 Unknown Total Creatine Kinase 272 units/L (30-135) H 08/25/19 Unknown CK-MB (CK-2) 1.0 ng/mL (0.0-4.0) 08/25/19 Unknown CK-MB (CK-2) Rel Index 0.3 (0-4) 08/25/19 Unknown Troponin T < 0.010 ng/mL (0.00-0.029) 08/25/19 Unknown Total Protein 7.4 g/dL (6.3-8.2) 08/25/19 Unknown Albumin 4.0 g/dL (3.9-5) 08/25/19 Unknown Albumin/Globulin Ratio 1.2 % 08/25/19 Unknown Triglycerides 80 mg/dL (2-149) 08/26/19 06:05 Cholesterol 228 mg/dL (50-199) H 08/26/19 06:05 LDL Cholesterol Direct 174 mg/dL (50-130) H 08/26/19 06:05 HDL Cholesterol 49 mg/dL (40-59) 08/26/19 06:05 Cholesterol/HDL Ratio 4.65 % 08/26/19 06:05 TSH 0.928 mlU/mL (0.270-4.200) 08/25/19 18:40 HCG, Quant < 2 mIU/mL (0-4) 08/25/19 18:40 Acetaminophen < 5.0 ug/mL (10.0-30.0) L 08/25/19 18:40 Syed/IV: Voiding Method Toilet IV Catheter Type [Left Peripheral IV Antecubital] Active Medications - Current Medications Current Medications: Generic Name Dose Route Start Last Admin Trade Name Freq PRN Reason Stop Dose Admin Acetaminophen 650 mg 08/25/19 22:05 Tylenol PO Q4H PRN Pain, Mild (1-3) Atorvastatin Calcium 40 mg 08/26/19 22:00 Lipitor PO QHS KIERA Bisacodyl 10 mg 08/25/19 22:05 Dulcolax [place] QDAY PRN Constipation Clopidogrel Bisulfate 75 mg 08/26/19 10:00 Plavix PO DAILY [facility] Enoxaparin Sodium 40 mg 08/26/19 10:00 Enoxaparin SUB-Q QDAY@1000 KIERA Magnesium Hydroxide 30 ml 08/25/19 22:05 Milk Of Magnesia PO Q4H PRN Constipation Metoclopramide HCl 10 mg 08/25/19 22:05 Reglan PO Q6H PRN Nausea And Vomiting Morphine Sulfate 2 mg 08/25/19 22:05 Morphine IV Q4H PRN Pain, Moderate (4-6) Ondansetron HCl 4 mg 08/25/19 22:05 Zofran IV Q4H PRN Nausea And Vomiting Promethazine HCl 25 mg 08/25/19 22:05 Phenergan [place] Q6H PRN Nausea And Vomiting Sodium Chloride 10 ml 08/25/19 22:05 Sodium Chloride Flush Syringe 10 Ml IV PRN PRN LINE FLUSH
[2019-08-26] MEDS: ENOXAPARIN 40 MG/0.4 ML INJ SUB-Q SCH (09:55)
[2019-08-26] MEDS: CLOPIDOGREL 75 MG TAB PO SCH (09:56)
[2019-08-26] MEDS ORDERED: ENOXAPARIN 30 MG/0.3 ML INJ SUB-Q SCH (10:00)
[2019-08-26] MEDS: HYDROcodone/ACETAMINOPHEN 5-325 MG TAB PO PRN ×2 (13:00→21:14)
--- NOTE | 2019-08-26 13:14 | Vascular Lab Report ---
"DUPLEX DOPPLER ULTRASOUND CAROTID, BILATERAL INDICATION: stroke. FINDINGS: RIGHT CAROTID: No significant atherosclerotic plaque. Right ICA peak systolic velocity: 78 cm/sec. Right Vertebral Artery: Antegrade flow. LEFT CAROTID: No significant atherosclerotic plaque. Left ICA peak systolic velocity: 102 cm/sec. Left Vertebral Artery: Antegrade flow. IMPRESSION: 1. Right Internal Carotid Artery: Less than 50% diameter stenosis. 2. Left Internal Carotid Artery: Less than 50% diameter stenosis. Velocity criteria are extrapolated from diameter data as defined by the Society of Radiologists in [facility] Consensus Conference, Radiology 2003; 229;340-346. Degree of Stenosis (%) || ICA PSV (cm/sec) || Plaque estimate (%) || ICA/CCA PSV Ratio Normal <125 None <2.0 <50 <125 <50 <2.0 50-69 125-230 50 2.0-4.0 70 but less than 100 >230 50 >4.0 Near occlusion High, low, or none visible variable Total occlusion None visible; no lumen N/A Signer Name: Clive Herrera MD Signed: 08/26/2019 1:10 PM Workstation Name: [id number]"
--- NOTE | 2019-08-27 09:18 | Progress Note ---
Subjective Date of service: 08/27/19 Interval history: see the ED notes c/o headaches and right sidedn weakness patient on multiple meds the carotid less than 50% stenosis and aCT of head is verry normal iwll review all labs ? medication related headaches? Objective - Vital Sign Vital Signs - 12hr 08/27/19 08/27/19 00:06 04:22 Temperature 98.4 F 98.3 F Pulse Rate 73 78 Respiratory 18 18 Rate Blood Pressure 112/53 115/68 O2 Sat by Pulse 97 99 Oximetry - Laboratory Findings CBC and BMP: 08/25/19 18:39 08/25/19 Unknown Abnormal Lab Findings: Abnormal Labs 08/25/19 08/25/19 08/26/19 18:40 Unknown 06:05 Total Creatine Kinase 272 H Cholesterol 228 H LDL Cholesterol Direct 174 H Acetaminophen < 5.0 L
[2019-08-27] MEDS ORDERED: ALBUTEROL 8.5 GM INHALATION IH PRN (09:33)
[2019-08-27] MEDS ORDERED: ALBUTEROL 2.5 MG/3 ML NEBU IH PRN (09:37)
--- NOTE | 2019-08-27 10:00 | Consultation ---
History of Present Illness - Reason for Consult Consult date: 08/27/19 - History of Present Illness went over the labs and the CPK is aslioghtly eleveated could be secondary to steriod use given number of meds she is one broncho dilators/ teruiods/ norco suspect med induced migraine imaging studies noted... plan check sed rarte and CPK tghere is hx of cervical muscle spasms from ED notes that I completely checked Medications and Allergies Allergies Allergy/AdvReac Type Severity Reaction Status Date / Time iodine Allergy Swelling Verified 01/15/13 10:05 naproxen Allergy Swelling Verified 01/15/13 10:05 seafood Allergy Shortness Uncoded 06/06/13 23:14 of Breath Home Medications Medication Instructions Recorded Confirmed Last Taken Type Budesonide [Pulmicort Respules] 1 neb INHALATION BID 01/15/13 10/01/15 06/06/13 02:00 History Prednisone [predniSONE 10 mg 10 mg PO QDAY 01/15/13 10/01/15 06/06/13 02:00 History (6-Day Pack, 21 Tabs)] ALBUTEROL NEB's [Proventil 0.083% 1 inh INHALATION Q4H PRN #60 ml 04/27/13 10/01/15 06/06/13 02:00 Rx NEBS] Albuterol INH(or & Nicu Only) 1 puff IH Q4-6H #1 inha 04/27/13 10/01/15 06/06/13 02:00 Rx [ProAir HFA Inhaler] oxyCODONE /ACETAMINOPHEN [Percocet 1 tab PO Q6HR PRN #20 tablet 06/07/13 10/01/15 Unknown Rx 5/325 mg] Albuterol Sulfate [Proair 90 mcg IH Q4HR PRN #2 aer.pow.ba 05/22/18 Unknown Rx Respiclick] Budesonide [Pulmicort Flexhaler] 2 puff IH BID #1 aer.pow.ba 05/22/18 Unknown Rx EPINEPHrine [Epipen 2-Milad] 0.3 mg IM DAILY PRN #2 ml 05/22/18 Unknown Rx Ipratropium [Atrovent NEB] 0.5 mg IH Q4HR #2 ml 05/22/18 Unknown Rx predniSONE [Deltasone] 40 mg PO QDAY #8 tab 05/22/18 Unknown Rx HYDROcodone/APAP 5-325 [[place] 1 each PO Q6HR PRN #10 tablet 10/30/18 Unknown Rx 5/325] Nitrofurantoin [place]/M-Cryst 100 mg PO Q12HR #14 capsule 10/30/18 Unknown Rx [Macrobid CAP] Active Meds: Active Medications Acetaminophen (Tylenol) 650 mg PO Q4H PRN PRN Reason: Pain, Mild (1-3) Acetaminophen/Hydrocodone Bitart ([place] 5/325) 1 each PO Q4H PRN PRN Reason: Pain, Moderate (4-6) Last Admin: 08/26/19 21:14 Dose: 1 each Documented by: Albuterol (Proventil) 2.5 mg IH Q4HRT PRN PRN Reason: Shortness Of Breath Atorvastatin Calcium (Lipitor) 40 mg PO QHS [facility] Last Admin: 08/26/19 21:14 Dose: 40 mg Documented by: Bisacodyl (Dulcolax) 10 mg ND QDAY PRN PRN Reason: Constipation Clopidogrel Bisulfate (Plavix) 75 mg PO DAILY [facility] Last Admin: 08/26/19 09:56 Dose: 75 mg Documented by: Enoxaparin Sodium (Enoxaparin) 40 mg SUB-Q QDAY@1000 [facility] Last Admin: 08/26/19 09:55 Dose: 40 mg Documented by: Morphine Sulfate (Morphine) 2 mg IV Q4H PRN PRN Reason: Pain, Moderate (4-6) Ondansetron HCl (Zofran) 4 mg IV Q4H PRN PRN Reason: Nausea And Vomiting Sodium Chloride (Sodium Chloride Flush Syringe 10 Ml) 10 ml IV PRN PRN PRN Reason: LINE FLUSH Exam - Constitutional Vitals: Temp Pulse Resp BP Pulse Ox 98.3 F 78 18 115/68 99 08/27/19 04:22 08/27/19 04:22 08/27/19 04:22 08/27/19 04:22 08/27/19 04:22 Results - Labs CBC & Chem 7: 08/25/19 18:39 08/25/19 Unknown
--- NOTE | 2019-08-27 10:35 | Magnetic Resonance Report ---
MRI BRAIN WITHOUT CONTRAST INDICATION / CLINICAL INFORMATION: MAIN: stroke, lt sided weakness. TECHNIQUE: Multisequence, multiplanar images were obtained. COMPARISON: CT head dated 08/25/2019 FINDINGS: CEREBRAL and CEREBELLAR HEMISPHERES: No evidence of mass or mass effect. No midline shift. No acute hemorrhage. No diffusion restriction to suggest acute infarct. No extra-axial fluid collection. VENTRICLES: Normal in size and configuration for age. VISUALIZED ORBITS: No significant abnormality. VISUALIZED PARANASAL SINUSES: No significant abnormality. ADDITIONAL FINDINGS: None. IMPRESSION: 1. No acute intracranial abnormality. Signer Name: Herson Portillo Jr, MD Signed: 08/27/2019 10:31 AM Workstation Name: [id number]
[2019-08-27] MEDS: CLOPIDOGREL 75 MG TAB PO SCH (11:08)
[2019-08-27] MEDS: ENOXAPARIN 40 MG/0.4 ML INJ SUB-Q SCH (11:08)
--- NOTE | 2019-08-27 11:47 | Discharge Summary ---
Providers - Providers Date of Admission: 08/25/19 22:05 Date of discharge: 08/27/19 Attending physician: LEROY GOVEA 08/25/19 Consult to Physician [CONS] Routine Comment: Consulting Provider: ISHMAEL HICKS Physician Instructions: Reason For Exam: cva 08/25/19 22:05 Occupational Therapy Evaluate and Treat [CONS] Routine Comment: Reason For Exam: Neuro deficits Physical Therapy Evaluation and Treat [CONS] Routine Comment: Reason For Exam: Neuro deficits Primary care physician: EVENT PRODUCER Hospitalization Condition: Good Hospital course: Patient is a 39 yo woman with a history of a history of asthma and migraines who presented with worsening headaches for 3 weeks with associated left-sided deficits per ED documentation. Patient presents more than 24 hours after symptom onset, therefore, she was not a TPA candidate. PCP is Dr. Haque, [facility] due to heart murmur. * TTE estimated Ejection fraction is 55-60%, E to A reversal suggestive of diastolic dysfunction, no PFO. Discharge Diagnoses: Intractable Headache most likely Complex migraine from undiagnosis ISIDRO: Obtain MRI of the head, carotid Doppler, echo, Do neuro checks, swallow screen, Consult physical, occupational, neurology, Start Plavix, statin Asthma: use Albuterol MDI prn DVT prophylaxis: on Sq lovenox Diastolic heart failure, chronic most likely ?ISIDRO, patient was suppose to have sleep study Obesity, pt lost 61 lbs since Dec 2018 via [facility] Diet plan, Natural [place], and walking Dysplipidemia new dx: discuss lifestyle modification. 08/26/19: MRI brain pending, Neurology consult pending 08/27/19: MRI brain negative, she needs to take the weave(sew in) out, it has been in for 3 months. Will discharge Disposition: DC-01 TO HOME OR SELFCARE Time spent for discharge: 35 minutes Core Measure Documentation - Palliative Care Palliative Care/ Comfort Measures: Not Applicable - Core Measures Any of the following diagnoses?: none - VTE Discharge Requirements Deep Vein Thrombosis/Pulmonary Embolism Present on Admission: No Has pt received <5 days of overlap therapy or INR<2.0: No Anticoagulant overlap therapy prescribed at discharge: No Contraindication No Overlap Therapy order at DC: Not Indicated Exam - Physical Exam Narrative exam: Gen: WDWN, NAD, Awake, Alert, Orientated x 3 HEENT: NCAT, EOMI, PERRL, OP Clear Neck: supple, no adenopathy, no thyromegaly, no JVD CVS/Heart: RRR, normal S1S2, pulses present bilaterally Chest/Lungs: CTA B, Symmetrical chest expansion, good air entry bilaterally GI/Abdomen: soft, NTND, good bowel sounds, no guarding or rebound /Bladder: no suprapubic tenderness, no CVA or paraspinal tenderness Extermity/Skin: no c/c/e, no obvious rash MSK: FROM x 4, msk strength 5/5 on the right and 4+/5 on the left Neuro: CN 2-12 grossly intact, no new focal deficits, no drift, Psych: calm - Constitutional Vitals: Temp Pulse Resp BP Pulse Ox 98.3 F 88 16 115/68 99 08/27/19 04:22 08/27/19 11:23 08/27/19 11:23 08/27/19 04:22 08/27/19 04:22 Plan Special Instructions: physical therapy, occupational therapy Additional Instructions: Need Sleep Study with Dr. Longoria Follow up with: PRIMARY CAREMD [Primary Care Provider] - 3-5 Days PAM LONGORIA MD [Staff Physician] - 7 Days ISHMAEL HICKS MD [Staff Physician] - 7 Days Prescriptions: AtorvaSTATin [Lipitor] 40 mg PO QHS #30 tablet Melatonin [Melatonin 10MG CAP] 10 mg PO QHS PRN #30 capsule PRN Reason: Sleep Acetaminophen [Arthritis Pain Reliever] 650 mg PO Q8H PRN #12 tablet.er PRN Reason: Pain, Moderate (4-6) methylPREDNISolone [Medrol 4MG DOSEPAK (21 tabs)] 1 dose PO DAILY #1 tab.ds.pk HYDROcodone/APAP 5-325 [[place] 5-325 mg TAB] 1 each PO Q4H PRN #15 tablet PRN Reason: Pain , Severe (7-10) Albuterol INH(or & Nicu Only) [ProAir HFA Inhaler] 2 puff IH QID PRN #8.5 gram PRN Reason: Shortness Of Breath
[2019-08-27] MEDS: HYDROcodone/ACETAMINOPHEN 5-325 MG TAB PO PRN (12:19)
[2019-08-27 14:59] VITALS: BP 135/78
== END 2019-08-27 13:20 | disposition home or self-care (01) ==
LOC: ED 17:19 → 4A 22:05
PROVIDERS: ADMIT Internal Medicine; ATTEND Internal Medicine
DX: R51 Headache (principal); G43.909 Migraine, unspecified, not intractable, without status migrainosus; S16.1XXA Strain of muscle, fascia and tendon at neck level, initial encounter; J45.909 Unspecified asthma, uncomplicated; I50.32 Chronic diastolic (congestive) heart failure; E78.5 Hyperlipidemia, unspecified; E66.9 Obesity, unspecified; Z90.711 Acquired absence of uterus with remaining cervical stump; Z79.51 Long term (current) use of inhaled steroids; Z79.52 Long term (current) use of systemic steroids; Z79.899 Other long term (current) drug therapy; Z88.6 Allergy status to analgesic agent; Z91.013 Allergy to seafood; Z91.048 Other nonmedicinal substance allergy status; X58.XXXA Exposure to other specified factors, initial encounter; Y93.89 Activity, other specified; Y92.89 Other specified places as the place of occurrence of the external cause; Z68.36 Body mass index [BMI] 36.0-36.9, adult
CPT/HCPCS: 36415; 70450; 70551; 80053; 80061; 82550; 82553; 82962; 83735; 84443; 84484; 84702; 85027; 85610; 85652; 85670; 85730; 93005; 93306; 93880; 94640; 96365; 96372; 96375; 97116; 99285; A9270; G0378; J1200; J1650; J2765; J3475; 80320; G0480; J1630; J2060